=== PATIENT | male | born 1985 | race Caucasian/White ===

== ENCOUNTER → 2020-04-06 13:00 | Outpatient (BNVA) | payer OTHER, SELFPAY | PROVIDERS: Visit Provider Internal Medicine | DX: G56.01 Carpal tunnel syndrome, right upper limb (principal) | CPT/HCPCS: 29125; 99202 ==

== ENCOUNTER → 2020-04-11 09:59 | Outpatient (BNVA) | payer OTHER, SELFPAY | PROVIDERS: Visit Provider Physician Assistant Medical | DX: G56.01 Carpal tunnel syndrome, right upper limb (principal) | CPT/HCPCS: 73110; 73130; 99213 ==

== ENCOUNTER 2020-04-18 08:30 | Outpatient (RCR) | payer OTHER, SELFPAY ==
--- NOTE | 2020-04-16 15:46 | MHC.OT.OEV ---
[address] [phone] F: [phone] Occupational Therapy Evaluation Diagnosis: Right CTS, wrist spasm Date of Onset: 04/04/20 Date of Surgery: Attending Provider: Sanaz Buchanan PA-C Prescribed Treatment: Ervin and Moe IRAHETA Follow Up Appointment: 04/18/20 History of Current Condition: Developed sharp onset of pain in right arm while working, driving home w/ worsening pain and felt 'like he had a tight watch on', reported pain the next day, went to work connection the day after that. X-ray (-). Pain and edema eventually started to subside about three weeks later, now referred to OT for management CTS and wrist spasm. 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 Living Situation, Family and/or Social Support: , lives w/ , two dogs Current Level of Function and Occupation Self Care, Employment, Leisure: Difficulty cutting food and cooking due to numbness Sleep: Sleep disruptions Driving: Drives w/ splint on Vision: Balance: Pain Assessment Pain Score: 5 Pain Scale Used: Numeric (0 - 10) Pain Location and Description: Right radial and ulnar hand->wrist 5/10 sharp-shooting pain, electricution D2-D4 and hand dorsum numbness Aggravating Factors: Picking up objects, everyday use Alleviating Factors: Motrin for relief, more comfortable when braced Skin and Soft Tissue Assessment Skin and Soft Tissue: Atrophy Comments: Mild atrophy left hypothenar eminance Nerve assessment Ulnar Nerve: Right Impaired Median Nerve: Left Impaired Radial Nerve: WNL Comments: Sensory Assessment Temperature: Right Impaired Light Touch: Right Impaired Proprioception: Vibration: Comments: R 3.61 palm and dorsum L 2.82 Reports inability to tell hot vs cold throughout right hand Edema Assessment Upper Extremity: Lower Extremity: Comments: Figure 8 R 35.3 cm L 34.9 cm Forearm 5 cm distal to elbow crease 28.2 L cm 27.8 cm Dexterity Assessment Dexterity: Right Impaired Comments: Nine Hole Peg R 45 sec L 25 sec Special Tests Comments: (-) Phalen's B/L (+) Comfort Sign L (+) [place]'s Sign L AROM(PROM) Strength Cervical Cervical Flexion: Cervical Extension: Cervical Lateral Flexion: Cervical Rotation: Comments: WFL Shoulder Flexion: Extension: Abduction: Internal Rotation: External Rotation: Comments: WFL, stiff end range shoulder flex, int and ext rot Flexion: Extension: Abduction: Internal Rotation: External Rotation: Comments: Elbow Flexion: Extension: Pronation: Supination: Comments: WFL Flexion: Extension: Pronation: Supination: Comments: Wrist Flexion: Extension: Ulnar Deviation: Radial Deviation: Comments: WFL Flexion: Extension: R 4- L 4 Ulnar Deviation: Radial Deviation: Comments: Thumb Thumb CMC Flexion: Thumb MCP Flexion: Thumb IP Flexion: Radial Abduction: Palmar Abduction: [place] ([place] 0-10): Comments: WFL Digits Index MCP: PIP: DIP: Long MCP: PIP: DIP: Ring MCP: PIP: DIP: Small MCP: PIP: DIP: Comments: WFL Gross Grasp: R 48 L 90 Lateral Pinch: R 12 L 17 Two-Point Pinch: R 4 L 12 Three-Jaw Scooter: R 12 L 19 Comments: Patient Education 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 Patient demonstrates Barriers to Learning: None Readiness for Learning: Accepting Who was educated? Patient Comments: Resting wrist orthosis Plan of Care Assessment: Abdoulaye has been referred to OT for management of right CTS and wrist spasm, initially starting while working and driving home from work about three weeks ago. He reports he had significant edema and was unable to be placed in prefab orthosis in work connection. On assessment, he reports numbness in Right D2-D4 and hand dorsum, SW consistently 3.61 on right palm, digits and dorsum (2.83 on left). He reports burning pain in radial and ulnar aspects of hand, radiating up to wrist. Gross grasp is about 50% of left at this time. Phalen's test (-) at this time. 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 OT will continue to assess and develop appropropriate plan to address sensory changes, pain and weakness. If no change in pain, sensation or strength, may benefit from further work-up, including EMG and/or neuro specialist. STG Duration: 2 weeks Short Term Goals: Ind w/ orthsosis Ind w/ UE nerve glides Right gross grasp >60 lb LTG Duration: 4 Bone Density Technician Goals: Pt to report decrease in nighttime sensory symptoms Gross grasp >75lb Quckdash score <30 points Return to light work duties Frequency and Duration: The patient will be seen 2x/wk for 4 weeks Treatment Plan: Therapeutic Exercise Therapeutic Activity Home Exercise Program Splinting Neuro Re-ed Patient Education Desensitization/Sensory Re-ed Edema Control ADL Training Iontophoresis Fluidotherapy Soft Tissue Mobilization Kinesiotaping Heat/Cold insensitivity Electronically Signed By: Alysa Hammond OTR/L Reviewed/agree with student documentation: N/A Therapist: Please sign and return to therapist, Thank you for your referral.
--- NOTE | 2020-07-18 14:15 | MHC.OT.DC ---
[address] [phone] F: [phone] Occupational Therapy Discharge Note Provider: Sanaz Buchanan PA-C Diagnosis: Right CTS, wrist spasm Date of Evaluation: 04/16/20 Treatments to Date: 2 Cancellations to Date: 0 No Shows to Date: 0 Discharge Summary: Abdoulaye has not returned for OT in the past two months, but at last visit was reporting pain in palm and numbenss in D1-D3, but noting overall improvements in numbness and pain of forearm. 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 Electronically Signed By: Alysa Hammond OTR/L Please Sign and return to therapist, thank you for your referral.
== END 2020-07-18 14:16 | disposition other institution (70) ==
LOC: HO.OT 08:30
PROVIDERS: Visit Provider Physician Assistant Medical
DX: G56.01 Carpal tunnel syndrome, right upper limb (principal); R25.2 Cramp and spasm
CPT/HCPCS: 29125; 97110; 97140; 97165; 97166; 97760

== ENCOUNTER → 2020-04-18 09:39 | Outpatient (BNVA) | payer OTHER, SELFPAY | PROVIDERS: Visit Provider Physician Assistant Medical | DX: G56.01 Carpal tunnel syndrome, right upper limb (principal) | CPT/HCPCS: 99213 ==

== ENCOUNTER 2020-04-20 19:25 | Outpatient (REF) | payer OTHER, SELFPAY ==
--- NOTE | ~2020-04-20 | MR_ITS ---
EXAMINATION: MR WRIST WITHOUT CONTRAST, RIGHT CLINICAL INFORMATION: Repetitive use injury. Carpal tunnel syndrome. COMPARISON: Right hand radiographs dated 04/11/2020. TECHNIQUE: MRI of the wrist was performed using routine sequences on a high-field scanner. FINDINGS: TRIANGULAR FIBROCARTILAGE: Intact. INTRINSIC LIGAMENTS: Intact. TENDONS/MEDIAN NERVE: Unremarkable median nerve. The flexor tendons within the carpal tunnel appear unremarkable without associated tenosynovitis. Mild extensor carpi ulnaris tendinosis at the level of the ulnar styloid. ARTICULAR CARTILAGE/BONE: Normal carpal alignment. Intact articular cartilage. No acute osseous injury. JOINT FLUID/SOFT TISSUES: Within normal limits. MR/MR wrist RT wo con IMPRESSION: 1. Mild extensor carpi ulnaris tendinosis at the level of the ulnar styloid. 2. The flexor tendons and median nerve are unremarkable. 3. No acute osseous injury.
== END 2020-04-20 19:26 | disposition home or self-care (01) ==
LOC: HO.MRI 19:25
PROVIDERS: Visit Provider Internal Medicine
DX: S69.91XA Unspecified injury of right wrist, hand and finger(s), initial encounter (principal); X50.3XXA Overexertion from repetitive movements, initial encounter; Y93.9 Activity, unspecified; Y92.9 Unspecified place or not applicable; Y99.8 Other external cause status
CPT/HCPCS: 73221

== ENCOUNTER → 2020-04-25 15:49 | Outpatient (BNVA) | payer OTHER, SELFPAY | PROVIDERS: Visit Provider Physician Assistant Medical | DX: M65.841 Other synovitis and tenosynovitis, right hand (principal) | CPT/HCPCS: 99213 ==

== ENCOUNTER 2020-05-07 17:08 | Outpatient (REF) | payer OTHER, SELFPAY | END 2020-05-07 17:09 | disposition home or self-care (01) | LOC: HO.HOSX 17:08 | PROVIDERS: Visit Provider Orthopaedic Surgery | DX: Z13.89 Encounter for screening for other disorder (principal) ==

== ENCOUNTER → 2020-05-08 08:33 | Outpatient (BNVA) | payer OTHER, SELFPAY | PROVIDERS: Visit Provider Orthopaedic Surgery | DX: R20.0 Anesthesia of skin (principal); R20.2 Paresthesia of skin | CPT/HCPCS: 99202 ==

== ENCOUNTER 2020-07-04 08:36 | Outpatient (REF) | payer OTHER, SELFPAY ==
--- NOTE | 2020-07-04 08:39 | EMG_ITS ---
This is a 34-year-old man with the right upper extremity numbness and tingling and more of a vibration sensation since March. He is on no medications. Neurological examination is completely normal. IMPRESSION: Paresthesia, right upper extremity, rule out nerve entrapment. Nerve conduction EMG study: Normal electrodiagnostic study of the right upper extremity with no evidence of carpal tunnel syndrome or nerve entrapment. Normal EMG of the right C5-T1 innervated muscles. MD CESIA Lehman/EDITH / [id number]
== END 2020-07-04 08:37 | disposition home or self-care (01) ==
LOC: HO.NEURO 08:36
PROVIDERS: Visit Provider Orthopaedic Surgery
DX: R20.0 Anesthesia of skin (principal); R20.2 Paresthesia of skin
CPT/HCPCS: 95885; 95910

== ENCOUNTER → 2020-07-16 10:54 | Outpatient (BNVA) | payer OTHER, SELFPAY | PROVIDERS: Visit Provider Orthopaedic Surgery | DX: R20.0 Anesthesia of skin (principal); R20.2 Paresthesia of skin | CPT/HCPCS: 99212 ==

== ENCOUNTER → 2020-07-20 12:46 | Outpatient (BNVA) | payer OTHER, SELFPAY | PROVIDERS: Visit Provider Internal Medicine | DX: M25.531 Pain in right wrist (principal) | CPT/HCPCS: 99214 ==